=== PATIENT | male | born 1995 | race Two or more races ===

== ENCOUNTER 2017-08-15 21:35 | Emergency (ER) | payer SELFPAY ==
[~2017-08-15] VITALS: Ht 157.5 cm; Wt 66.7 kg
[2017-08-16] MEDS ORDERED: KETOROLAC TROMETH 60MG/2ML VIAL IM ONE (01:45)
[2017-08-16] MEDS ORDERED: HYDROcodone-ACET 10/325MG TAB PO ONE (01:45)
[2017-08-16 05:25] VITALS: BP 117/68
== END 2017-08-16 06:51 | disposition home or self-care (01) ==
LOC: ER 21:35
DX: S90.414A Abrasion, right lesser toe(s), initial encounter (principal); V86.59XA Driver of other special all-terrain or other off-road motor vehicle injured in nontraffic accident, initial encounter; Y93.89 Activity, other specified; Y92.89 Other specified places as the place of occurrence of the external cause; Y99.8 Other external cause status
CPT/HCPCS: 71045; 72040; 73610; 96372; 99284; J1885